=== PATIENT | female | born 1995 | race Caucasian/White ===

== ENCOUNTER 2016-10-13 17:08 | Emergency (ER) | payer OTHER ==
[~2016-10-13] VITALS: Ht 162.6 cm; Wt 77.1 kg
[2016-10-13 17:21] VITALS: BP 122/77
--- NOTE | 2016-10-13 18:06 | NUR ---
Patient ambulated to bed 05.
--- NOTE | 2016-10-13 18:15 | NUR ---
PATIENT PRESENTS TO ED WITH C/O WORKING IN [employer]--1.25INCH VERTICLE LAC FROM [place]NU[place] TO END OF DIGIT PT HAD APPLIED ICE WITH TRANSPARENT WORK GLOVE IN PLACE OVER LAC SITE-- >3 SEC CAP REFILL TO AFFECTED DIGIT, HX---SEIZURES RX---TEGRETOL, TOPAMAX . DENIES N/V/D; SKIN IS PINK/WARM/DRY; AAOX4 WITH EVEN AND STEADY GAIT; LUNGS CLEAR BL; HR EVEN AND REGULAR; PT DENIES ANY FEVER, CP, SOB, OR COUGH AT THIS TIME; PATIENT STATES PAIN OF 10/10 AT THIS TIME; VSS; PATIENT POSITIONED FOR COMFORT; HOB ELEVATED; BEDRAILS UP X2; BED DOWN. ER MD MADE AWARE OF PT STATUS.
[2016-10-13] MEDS ORDERED: KETOROLAC 60 MG/2 ML VIAL IM ONE (18:20)
[2016-10-13 19:00] VITALS: BP 122/77
== END 2016-10-13 19:00 | disposition home or self-care (01) ==
LOC: MED 17:08
DX: S61.011A Laceration without foreign body of right thumb without damage to nail, initial encounter (principal); W45.8XXA Other foreign body or object entering through skin, initial encounter; Y93.89 Activity, other specified; Y92.89 Other specified places as the place of occurrence of the external cause; Y99.8 Other external cause status
CPT/HCPCS: 12001; 90471; 90715; 96372; 99284; J1885

== ENCOUNTER 2019-03-21 16:17 | Emergency (ER) | payer MEDICAID, OTHER ==
[~2019-03-21] VITALS: Ht 177.8 cm; Wt 77.1 kg
[2019-03-21 16:37] VITALS: BP 126/74
--- NOTE | 2019-03-21 16:43 | NUR ---
24 yo female co of SEIZURE. BIBA. ALL VSS. NO OTHER MED HX. PT TAKES SEIZURE MEDS.
--- NOTE | 2019-03-21 16:44 | NUR ---
PT DOES NOT WANT TO BE SEEN. NOTIFIED .
[2019-03-21] MEDS ORDERED: KETOROLAC 30 MG/ML VIAL IVP ONE (16:55)
[2019-03-21 17:22] VITALS: BP 126/74
--- NOTE | 2019-03-21 17:23 | NUR ---
Patient discharged with v/s stable. Written and verbal after care instructions given and explained. Patient verbalized understanding. Ambulatory with steady gait. All questions addressed prior to discharge. Advised to follow up with PMD.
== END 2019-03-21 17:23 | disposition home or self-care (01) ==
LOC: MED 16:17
DX: R56.9 Unspecified convulsions (principal)
CPT/HCPCS: 96374; 99283; J1885